=== PATIENT | female | born 1980 | race Caucasian/White ===

== ENCOUNTER → 2016-12-04 | Outpatient (CLI) | payer OTHER ==
[~2016-12-04] MED LIST: CALC-603 PO; CHOL10003 PO; HEPA50003 SQ; LEVO25TA49 PO; PREN-92 PO
== END ==
LOC: WC.BC 13:47
PROVIDERS: ATTEND Nurse Practitioner Obstetrics & Gynecology
DX: Z03.89 Encounter for observation for other suspected diseases and conditions ruled out (principal)
CPT/HCPCS: 76642; 77061; G0206